=== PATIENT | female | born 1995 | race African-American/Black ===

== ENCOUNTER 2025-01-01 18:41 | Emergency (ER) | payer OTHER, SELFPAY ==
[2025-01-01 18:51] VITALS: BP 154/92; PULSE 92; RESP 16; TEMP 37.3; O2SAT 100
--- NOTE | 2025-01-01 19:01 | ED.FEMALEGU ---
HPI - Female Genitourinary General Chief complaint: Urogenital-Female Stated complaint: Uti Symptoms Time Seen by Provider: 01/01/25 19:02 Source: patient, RN notes reviewed and old records reviewed Mode of arrival: ambulatory Limitations: no limitations History of Present Illness HPI Narrative: 29 year old female who presents to [facility] with complaints of having urinary urgency last week then had menses which ended 3 days ago and continued to have urinary urgency. Patient reports that she started having some lower abdominal discomfort suprapubic area today with no fevers,flank pain or any nausea or vomiting. Patient reports that it feels like previous UTI symptoms. Patient reports that she would like to be checked for BV has some slight odor to urine has had BV in past. MD elicited complaint: dysuria Pertinent past history: other (UTI, BV) Onset (ago): week(s) (1 week increased symptoms today) Location of symptoms: suprapubic and urethra Severity: mild Quality of pain: aching Urinary symptoms: Urgency Treatment prior to arrival: none Related Data Allergies Allergy/AdvReac Type Severity Reaction Status Date / Time No Known Allergies Allergy Verified 01/01/25 19:03 Review of Systems Review of Systems: CONSTITUTIONAL: Denies fever, chills, or sweats. CARDIOVASCULAR: Denies chest pain, palpitations, or edema. RESPIRATORY: Denies cough or dyspnea. GASTROINTESTINAL:suprapubic abdominal discomfort,no nausea, vomiting, or diarrhea. GENITOURINARY: Reports no dysuria, frequency,positive for urgency. Denies flank pain or hematuria. SKIN: Denies rash or itching. MUSCULOSKELETAL: Denies back pain or myalgia. Denies CVA tenderness NEUROLOGIC: Denies headache All systems reviewed & are unremarkable except as noted in HPI and below PMFSH Past Medical History Medical History BV (bacterial vaginosis) UTI (urinary tract infection) Social History Social History Smoking status: Never smoker Alcohol intake: never Substance use: never Living arrangements: with family Gender identity (if verbalized by the patient): Female Comments At time of signature, agree with nursing past medical, surgical, social and family history. There is no relevant family history pertinent to the presenting complaint Exam Narrative: GENERAL: Well-appearing, well-nourished, and in no acute distress. HEAD: Normocephalic, atraumatic. NECK: Supple.no lymphadenopathy CHEST: Clear to auscultation. No respiratory distress.SAO2 100% on room air HEART: Regular rate and rhythm. No murmur heard. Normal peripheral pulses. ABDOMEN: Soft, nontender to palpation, no McBurney point tenderness, nondistended, normal active bowel sounds. No CVA tenderness reports urinary urgency, slight odor to urine, denies urinary burning or discharge EXTREMITIES: Normal range of motion. No edema. SKIN: Warm, dry, no rash. NEURO: No focal deficits. Alert and oriented x3. Course Course Emergency Course: Patient is aware of diagnosis, understands and agrees to treatment plan.? Anticipatory guidance given.? Patient agrees to follow-up as directed and is aware of reasons to seek care at the emergency department. Portions of this record may have been created with voice recognition software Level of Care: Express Care Visit Vital Signs Vital signs: Vital Signs Temperature 37.3 C 01/01/25 18:51 Pulse Rate 92 01/01/25 18:51 Respiratory Rate 16 01/01/25 18:51 Blood Pressure 154/92 H 01/01/25 18:51 Pulse Oximetry 100 01/01/25 18:51 Temperature 37.3 C 01/01/25 18:51 Pulse Rate 92 01/01/25 18:51 Respiratory Rate 16 01/01/25 18:51 Blood Pressure 154/92 H 01/01/25 18:51 Pulse Oximetry 100 01/01/25 18:51 MDM - Female Genitourinary MDM Narrative Medical decision making narrative: Exam findings and UA show no acute concerns or changes; patient is non-toxic appearing and is in no distress.? Patient is appropriate for outpatient treatment and follow-up. Differential Diagnosis Differential diagnosis: Likely urinary tract infection, bacterial vaginosis, cervicitis, vaginitis, cystitis and other (dysuria) Medical Records Attestation: I reviewed the patient's medical records. Lab Data Attestation: I reviewed the patient's lab results. Lab results narrative: urine dip: glucose negative, bilirubin negative, ketones negative, specific gravity 1.015, blood negative, pH 7.0,protein negative, urobilinogen 0.2 nitrate negative. leukocyte negative urine culture sent BV vaginal culture sent Labs: Lab Results 01/01/25 01/01/25 Range/Units 18:55 19:09 POC Urine Color Yellow POC Urine Clarity Clear POC Urine pH 7.0 POC Ur Specif [place] 1.015 POC Urine Protein Negative (Negative) POC Ur Glucose (UA) Negative (Negative) POC Urine Ketones Negative (Negative) POC Urine Blood Negative (Negative) POC Urine Nitrite Negative (Negative) POC Urine Bilirubin Negative (Negative) POC Urine Urobilinogen 0.2 POC U Leukocyte Esteras Negative (Negative) Bact Vaginosis Panel Pending reviewed Critical Care Time Critical Care Time Critical Care Time: No Discharge Plan Discharge Clinical Impression: Urinary urgency, BV (bacterial vaginosis) Patient Disposition: Home Condition: Stable Instructions: Antibiotic Form, Bacterial Vaginosis (ED), Urinary Urgency and Frequency (DC) Additional Instructions: Increase fluids especially cranberry juice and water Avoid caffeine and carbonated beverages Tylenol/ibuprofen for pain or fever Follow-up with her primary care provider if further problems or concerns Recheck if you have fever over 101, nausea and vomiting. Flagyl oral antibiotic as ordered may not drink any alcohol while on this medication If your symptoms persist, change or worsen significantly before you can contact your personal physician then please, without delay, go to the emergency department for further evaluation. Follow-up with PCP in 7-10 days or sooner if needed Follow up with PCP soon in regards to your blood pressure which is elevated above threshold for referral. Blood pressure above 120/80 may indicate pre-hypertension. blood 154/92 culture for BV sent , urine culture sent Patient Language: Persian Prescriptions: New metronidazole 500 mg tablet 500 mg PO Q12H Qty: 14 0RF Follow-up/Referrals: PHYSICIAN,CONSUMER LOAN SPECIALIST [Primary Care Provider] - Time of Disposition: 19:19 Quality [place] Coma Scale Eyes: Open Verbal: Oriented and Alert Motor: Follows Commands Chip Coma Total Score: 15
[2025-01-01 19:36] LABS: EDUAAPPEAR Clear; EDUABILI Negative (Negative); EDUABLOOD Negative (Negative); EDUACOLOR1 Yellow; EDUAGLUCOSE Negative (Negative); EDUAKETONE Negative (Negative); EDUALEUKO Negative (Negative); EDUANITRATE Negative (Negative); EDUAPROTEIN Negative (Negative); EDUASPGRAVITY 1.015; EDUAUROBILI 0.2
[2025-01-03 09:44] LABS: Bacterial Vaginosis NEGATIVE (NEGATIVE)
== END 2025-01-01 19:25 | disposition home or self-care (01) ==
PROVIDERS: Emergency Provider Registered Nurse
DX: R39.15 Urgency of urination (principal); N76.0 Acute vaginitis
CPT/HCPCS: 81003; 81513; 87086; 99203; G0463